=== PATIENT | female | born 1965 | race Caucasian/White ===

== ENCOUNTER 2017-08-31 10:58 | Emergency (ER) | payer OTHER ==
[2017-08-31] MEDS: IBUPROFEN 200 MG TAB PO (11:29)
[2017-08-31] MEDS: CIPROFLOXACIN 500 MG TAB PO (11:29)
[2017-08-31 11:57] LABS: ADD UMIC YES; UR ASCORBIC ACID NEGATIVE (NEGATIVE); UR BILIRUBIN (Dip) NEGATIVE (NEGATIVE); UR BLOOD (Dip) NEGATIVE (NEGATIVE); UR CLARITY CLEAR (CLEAR); UR COLOR AMBER (YELLOW); UR GLUCOSE (Dip) NEGATIVE (NEGATIVE); UR KETONES (Dip) NEGATIVE (NEGATIVE); UR LEUKOCYTE ESTERASE (Dip) NEGATIVE Leu/ul (NEGATIVE); UR NITRITE (Dip) POSITIVE (NEGATIVE); UR RBC 1 /HPF (0-5); UR SPECIFIC GRAVITY (Dip) 1.006 (1.003-1.030); UR TOTAL PROTEIN (Dip) NEGATIVE (NEGATIVE); UR UROBILINOGEN (Dip) 2+ mg/dL (NEGATIVE); UR WBC 0 /HPF (0-5)
== END 2017-08-31 12:32 | disposition home or self-care (01) ==
LOC: FTE 10:58
DX: N39.0 Urinary tract infection, site not specified (principal); I10 Essential (primary) hypertension
CPT/HCPCS: 81001; 99283

== ENCOUNTER 2017-10-09 07:17 | Day surgery (SDC) | payer OTHER ==
[~2017-10-09 07:17] MED LIST: CEFAZOLIN 1 GM INJ; CEFAZOLIN 2 GM/50 ML (PMX) 50 ML IVPB; DEXAMETHASONE 4 MG/ML 1 ML INJ; ONDANSETRON 4 MG INJ
[2017-10-09] MEDS ORDERED: FENTAnyl 50 MCG/ML VIAL ×2 (09:12→10:33)
[2017-10-09] MEDS ORDERED: MIDAZOLAM 1 MG/ML 2 ML INJ (09:12)
[2017-10-09] MEDS ORDERED: LIDOCAINE 2% (SDV) 5 ML INJ (09:13)
[2017-10-09] MEDS ORDERED: METOCLOPRAMIDE 10 MG INJ (09:13)
[2017-10-09] MEDS ORDERED: PROPOFOL 20 ML (09:13)
[2017-10-09] MEDS ORDERED: SODIUM CL BACTERIOSTATIC 30 ML INJ (09:30)
[2017-10-09] MEDS ORDERED: EPINEPHrine 0.1 MG/ML SYG (10:30)
[2017-10-09] MEDS: morphine SULFATE/PF (10 MG/10 ML) INJ (10:44)
[2017-10-09] MEDS ORDERED: ONDANSETRON 4 MG INJ IV (11:00)
[2017-10-09] MEDS ORDERED: FENTAnyl 50 MCG/ML VIAL IV ×2 (11:00)
[2017-10-09] MEDS ORDERED: MEPERIDINE 25 MG INJ IV (11:00)
[2017-10-09] MEDS ORDERED: hydrALAzine 20 MG INJ IV (11:00)
[2017-10-09] MEDS ORDERED: LABETALOL HCL 20MG INJ IV (11:00)
[2017-10-09] MEDS ORDERED: DIPHENHYDRAMINE 50 MG INJ IV (11:00)
[2017-10-09] MEDS ORDERED: HYDROCODONE/APAP (5/325) TAB PO ×2 (11:00)
[2017-10-09] MEDS: HYDROmorphONE 1 MG/5 ML IV SYRINGE IV ×3 (11:20→11:34)
[2017-10-09] MEDS: KETOROLAC 30 MG INJ IV (12:08)
== END 2017-10-09 13:27 | disposition home or self-care (01) ==
LOC: SDS 07:17
DX: S83.232D Complex tear of medial meniscus, current injury, left knee, subsequent encounter (principal); X58.XXXD Exposure to other specified factors, subsequent encounter; M65.862 Other synovitis and tenosynovitis, left lower leg; E11.9 Type 2 diabetes mellitus without complications; I10 Essential (primary) hypertension; E66.01 Morbid (severe) obesity due to excess calories; Z68.42 Body mass index [BMI] 45.0-49.9, adult
CPT/HCPCS: 29881; 82962